=== PATIENT | male | born 1980 | race Caucasian/White ===

== ENCOUNTER 2016-09-13 11:53 | Emergency (ER) | payer SELFPAY | END 2016-09-13 13:45 | disposition home or self-care (01) | LOC: ER 11:53 | DX: J20.9 Acute bronchitis, unspecified (principal); R42 Dizziness and giddiness; R53.81 Other malaise; F17.210 Nicotine dependence, cigarettes, uncomplicated | CPT/HCPCS: 36415; 87502 ==